=== PATIENT | female | born 1945 | race Caucasian/White ===

== ENCOUNTER 2023-12-14 14:42 | Outpatient (CLI) | payer MEDICARE, SELFPAY | END 2023-12-14 14:43 | disposition home or self-care (01) | PROVIDERS: PCP Family Medicine; Visit Provider Orthopaedic Surgery Sports Medicine | DX: M19.012 Primary osteoarthritis, left shoulder (principal); Z96.612 Presence of left artificial shoulder joint | CPT/HCPCS: 73200 ==

== ENCOUNTER 2023-12-31 14:49 | Outpatient (RCR) | payer MEDICARE, SELFPAY ==
--- NOTE | 2023-12-31 18:02 | OT.OPOE ---
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 Medical Conditions HTN,Metal Implants,Arthritis Medical/Functional History Medical History Reviewed Yes Prior Level of Function/Mobility Pt was I with all ADLs/IADLs, enjoys gardening, cooking. Social History Physical Barriers in Home Environment Level, No Step,Railing Ascend Left Employment Status Retired Ortho Subjective Subjective Subjective I have been avoiding this and now I am ready to get it done. Pain Assessment Pain Pain Yes Pain Comments Should pain interferes with sleep. OT Problems Problems Problems Decreased Strength,Decreased Range of Motion,Decreased Dexterity,Pain,Lifting, Gripping Other Problems Opening Containers,Dressing, Fasteners,Sleeping Assessment Assessment Assessment Pt is a 78 yr old female referred to outpatient occupational therapy for a Left reverse TSA pre-op. Surgery is scheduled for , Pt is R hand dominant. Pt will have assist from her partner, lives in an accessible home and has a necessary DME/AE. Pt was educated on post op exercises, post surgical precautions, as well as hospital progression prior to DC. Pt was also educated on positioning and sleeping, one handed ADL techniques, icing/ polar care, and sling management. All questions were answered to Pt?s satisfaction . Occupational Therapy Treatment Plan - OP Potential Rehabilitation Potential Excellent Set Goals Goals Set with Patient Yes Goals Goals Within one visit the patient will.... 1. be educated on sling management, one handed ADL techniques. GOAL MET 2. be able to verbalized and demonstrate post op exercises. GOAL MET Treatment Plan Treatment Plan Evaluation,Self Care/Home Management,Education Expected Frequency Comments one time eval and tx Certification Certification Statement I Certify That: Therapy Services Provided, Therapy Plan Established, Therapy Plan Reviewed Certification Information Clinic ID # [id number] Initial Certification Date 12/31/23 Recertification Due Date 02/29/24 Provider Signature Required Yes Provider Signature Shows Agreement With POC & Medical Necessity Physician NPI Number Write NPI# Here Physician Comment/Change Comment or Changes Physician Signature & Date Requested Please Sign/Date Here
== END 2024-01-08 12:11 | disposition home or self-care (01) ==
PROVIDERS: PCP Family Medicine; Visit Provider Orthopaedic Surgery Sports Medicine
DX: M19.012 Primary osteoarthritis, left shoulder (principal); Z96.612 Presence of left artificial shoulder joint; Z51.89 Encounter for other specified aftercare
CPT/HCPCS: 97165; 97535

== ENCOUNTER 2024-03-10 12:42 | Outpatient (CLI) | payer MEDICARE, SELFPAY | END 2024-03-10 12:43 | disposition home or self-care (01) | LOC: WOUND 12:43 | PROVIDERS: PCP Family Medicine; Visit Provider Nurse Practitioner Family | DX: Z48.817 Encounter for surgical aftercare following surgery on the skin and subcutaneous tissue (principal); L57.0 Actinic keratosis | CPT/HCPCS: 97597; G0463 ==

== ENCOUNTER 2024-03-17 14:28 | Outpatient (CLI) | payer MEDICARE, SELFPAY | END 2024-03-17 14:29 | disposition home or self-care (01) | LOC: WOUND 14:28 | PROVIDERS: PCP Family Medicine; Visit Provider Nurse Practitioner Family | DX: Z48.817 Encounter for surgical aftercare following surgery on the skin and subcutaneous tissue (principal); L57.0 Actinic keratosis | CPT/HCPCS: 97597 ==

== ENCOUNTER 2024-03-24 13:14 | Outpatient (CLI) | payer MEDICARE, SELFPAY | END 2024-03-24 13:15 | disposition home or self-care (01) | LOC: WOUND 13:14 | PROVIDERS: PCP Family Medicine; Visit Provider Nurse Practitioner Family | DX: Z48.817 Encounter for surgical aftercare following surgery on the skin and subcutaneous tissue (principal); L57.0 Actinic keratosis | CPT/HCPCS: 97597 ==

== ENCOUNTER 2024-03-31 14:28 | Outpatient (CLI) | payer MEDICARE, SELFPAY | END 2024-03-31 14:29 | disposition home or self-care (01) | LOC: WOUND 14:28 | PROVIDERS: PCP Family Medicine; Visit Provider Physician Assistant | DX: Z48.817 Encounter for surgical aftercare following surgery on the skin and subcutaneous tissue (principal); L57.0 Actinic keratosis | CPT/HCPCS: 97597 ==

== ENCOUNTER 2024-04-07 14:27 | Outpatient (CLI) | payer MEDICARE, SELFPAY | END 2024-04-07 14:28 | disposition home or self-care (01) | LOC: WOUND 14:27 | PROVIDERS: PCP Family Medicine; Visit Provider Nurse Practitioner Family | DX: Z48.817 Encounter for surgical aftercare following surgery on the skin and subcutaneous tissue (principal); L57.0 Actinic keratosis | CPT/HCPCS: 11042 ==

== ENCOUNTER 2025-02-03 07:08 | Outpatient (CLI) | payer MEDICARE, SELFPAY ==
--- NOTE | 2025-02-03 08:21 | P.ANES_ITS ---
Anesthesia Charges Start Date/Time Anesthesia Start Date: 02/03/25 Anesthesia Start Time: 07:58 Stop Date/Time Anesthesia Stop Date: 02/03/25 Anesthesia Stop Time: 08:19 Summary Extremes of Age - Over 70 or under 1: OPEN SOURCE DEVELOPER Coding CPT Codes CPT Codes: ANES UPR GI NDSC PX NOS - 35731 ([id number]) P2 - PATIENT W/MILD SYST DISEASE, QK - EVAPORATOR OPERATOR 2-4 CNCRNT ANES PROC, QX - OPEN SOURCE DEVELOPER SVC W/ MD MED DIRECTION Additional Codes: Summary - Extremes of Age - Over 70 or under 1: OPEN SOURCE DEVELOPER ([id number])
--- NOTE | 2025-02-03 08:21 | W.ANESCHARGE ---
Anesthesia Charges Start Date/Time Anesthesia Start Date: 02/03/25 Anesthesia Start Time: 07:58 Stop Date/Time Anesthesia Stop Date: 02/03/25 Anesthesia Stop Time: 08:19 Summary Extremes of Age - Over 70 or under 1: GROUP INSURANCE SPECIAL AGENT Coding CPT Codes CPT Codes: ANES UPR GI NDSC PX NOS - 70601 ([id number]) P2 - PATIENT W/MILD SYST DISEASE, QK - VP [employer] 2-4 CNCRNT ANES PROC, QX - GROUP INSURANCE SPECIAL AGENT SVC W/ MD MED DIRECTION Additional Codes: Summary - Extremes of Age - Over 70 or under 1: GROUP INSURANCE SPECIAL AGENT ([id number])
--- NOTE | 2025-02-03 08:31 | W.ANESCHARGE ---
Anesthesia Charges Start Date/Time Anesthesia Start Date: 02/03/25 Anesthesia Start Time: 07:58 Stop Date/Time Anesthesia Stop Date: 02/03/25 Anesthesia Stop Time: 08:19 Summary Extremes of Age - Over 70 or under 1: MDA Coding CPT Codes CPT Codes: ANES UPR GI NDSC PX NOS - 67095 ([id number]) QK - CHANNEL SALES DIRECTOR 2-4 CNCRNT ANES PROC, QX - EMBROIDERY PATTERNMAKER SVC W/ MD MED DIRECTION, P2 - PATIENT W/MILD SYST DISEASE Additional Codes: Summary - Extremes of Age - Over 70 or under 1: JOCELYN ([id number])
== END 2025-02-03 07:09 | disposition home or self-care (01) ==
LOC: OP CLINIC 07:08
PROVIDERS: PCP Family Medicine; Visit Provider Internal Medicine Gastroenterology
DX: R10.13 Epigastric pain (principal); K21.9 Gastro-esophageal reflux disease without esophagitis; K22.89 Other specified disease of esophagus; K31.89 Other diseases of stomach and duodenum
CPT/HCPCS: 00731; 43239; 99100; J2704; J3490